=== PATIENT | female | born 1950 | race Caucasian/White ===

== ENCOUNTER → 2017-01-05 | Outpatient (CLI) | payer MEDICARE ==
--- OUTSIDE RECORDS SUMMARY | 2017-01-05 14:07 | XMS REPORT | Referral Summary ---
Author Author [facility] Organization [facility] Address Unknown Phone Unavailable Care Team Providers Care Mason Tender Restoration Labor Name Role Phone Mesha Peters PCP Encounter [facility] Date(s): 10/23/15 - 10/23/15 [facility] [address] [place], [place] [address] Discharge Diagnosis: Brachioradial pruritus Discharge Disposition: 01-Home or Self Care Attending Physician: Yannick Myrick MD Admitting Physician: Yannick Myrick MD Referring Physician: Kelly Peters MD Vital Signs No data available for this section Problem List Condition Effective Dates Status Health Status Informant Benign pituitary Active tumor(Confirmed) Left Shoulder Bone Active spur(Confirmed)1 Bent/Broken Active toes(Confirmed)2 HRT - Hormone Active implant therapy(Confirmed) Hypothyroidism(Confi Active rmed)3 OTHER Active DYSCHROMIA(Confirmed )4 Prolactinoma(Confirm Active ed)5 Right Shoulder 2006 Active Rotator cuff(Confirmed)6 3Mchfpdy2Nlm Surgery d06Ulty Tnrovzp1Qfqu Xwxjc9Pwxn [id number] Allergies, Adverse Reactions, Alerts No Known Allergies Medications Aspirin Low Dose 81 mg, Oral, Daily, 0 Refill(s) Start Date: 04/15/15 Status: OrderedCalcium 600+D tabs, Oral, TID, 0 Refill(s) Start Date: 06/24/14 Status: OrderedEstradiol Patch 0.1 mg/24 hours twice weekly transdermal film, extended release See Instructions, APPLY 1 PATCH TO SKIN TWICE A WEEK, # 8 patches, eRx: [id number], APPLY 1 PATCH TO SKIN TWICE A WEEK Start Date: 10/15/15 Status: OrderedhydrOXYzine hydrochloride 25 mg oral tablet See Instructions, 2 TABS ORAL QID, # 180 tabs, 2 Refill(s), eRx: [facility] [id number], 2 TABS ORAL QID Start Date: 01/13/15 Status: Orderedlevothyroxine 100 mcg (0.1 mg) oral tablet See Instructions, TAKE 1 TABLET BY MOUTH DAILY LAST FILL- DUE FOR PHYSICAL- please call to schedule, # 30 tabs, 0 Refill(s), Pharmacy: [facility] , TAKE 1 TABLET BY MOUTH DAILY; LAST FILL- DUE FOR PHYSICAL- please call to schedule Start Date: 06/18/15 Status: OrderedmedroxyPROGESTERone 10 mg oral tablet See Instructions, 1 TABS ORAL DAILY,X5 DAYS,INSTR:STOP 200MG PROGESTERONE WHILE TAKING., # 5 tabs, eRx: [facility] , 1 TABS ORAL DAILY,X5 DAYS, INSTR:STOP 200MG PROGESTERONE WHILE TAKING. Start Date: 04/28/15 Status: OrderedMelatonin Oral, Bedtime (once a day), 0 Refill(s) Start Date: 06/24/14 Status: Orderedprogesterone 200 mg oral capsule See Instructions, TAKE ONE CAPSULE BY MOUTH DAILY, # 30 caps, KELLY, eRx: [facility] , TAKE ONE CAPSULE BY MOUTH DAILY Start Date: 09/05/15 Status: Ordered Results No data available for this section Immunizations Vaccine Date Refusal Reason tetanus/diphth/pertuss (Tdap) adult/adol 05/30/09 influenza virus vaccine, live 09/21/10 tetanus-diphth toxoids (Td) adult/adol 02/08/01 zoster vaccine live 11/13/13 Procedures Procedure Date Related Diagnosis Body Site Hysteroscope 03/2008 D&C - Dilatation and curettage 2008 Colonoscopy1 08/2006 Surgery 2006 Surgery Toe Surgery x3 1Normal, Follow up 10 years Social History Social History Type Response Smoking Status Never smoker Assessment and Plan Extracted from: Title: Office Visit Note Author: Yannick Myrick MD Date: 10/23/15 Assessment/Plan 1.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 We discussed this frustrating and difficult to treat condition. I recommend using ice packs or cooling lotions with menthol or camp for 4 acute episodes. Some people benefit from chiropractic manipulation. She is going to try capsaicin cream as an option. Neurontin could be a future option but I would prefer to manage with topical capsaicin cream long-term if able. I gave her a handout about this condition. Ordered: Office Visit Level 2 New [id number]
--- NOTE | 2017-01-05 15:35 | Diagnostic Imaging Report ---
PROCEDURE: MRI left upper extremity without contrast. TECHNIQUE: Multiplanar, multisequence MR imaging of the left shoulder was performed without contrast. COMPARISON: None available. INDICATION: Left shoulder pain after fall. FINDINGS: Rotator cuff: No rotator cuff tear. Mild tendinopathy of the supraspinatus is present. No rotator cuff muscle atrophy. Glenoid labrum: Evaluation of the glenoid labrum is limited without intra-articular contrast. Additionally, patient motion limits evaluation of the labrum as well. Allowing for this, no displaced labral tear is seen. Long head of biceps: Long head of biceps is normal in position and intracapsular segment is intact. Bones and cartilage: No fracture or focal osseous lesion in the proximal humerus or glenoid. No high-grade chondromalacia in the glenohumeral joint. Acromioclavicular joint is normal in alignment with mild degenerative changes, including small inferior projecting osteophytes. Soft tissues: No MRI findings of adhesive capsulitis. No subacromial or subdeltoid bursitis. No glenohumeral joint effusion. IMPRESSION: 1. No rotator cuff tear. Mild tendinopathy of the supraspinatus. 2. Long head of the biceps is normal. 3. Mild osteoarthritis of the acromioclavicular joint. Dictated by: Dictated on workstation # [id number]
== END ==
LOC: RAD 14:04
PROVIDERS: ATTEND Nurse Practitioner
DX: M75.122 Complete rotator cuff tear or rupture of left shoulder, not specified as traumatic (principal)
CPT/HCPCS: 73221

== ENCOUNTER 2018-01-19 05:31 | Outpatient (CLI) | payer MEDICARE ==
[~2018-01-19] VITALS: Ht 167.6 cm; Wt 59.0 kg
[2018-01-19] MEDS ORDERED: SKELETAL STRENGTH PO (12:03)
[2018-01-19] MEDS ORDERED: MELA1TAB15 PO (12:03)
[2018-01-19] MEDS ORDERED: PRED5TAB PO (12:03)
[2018-01-19] MEDS ORDERED: UBID100C17 PO (12:03)
[2018-01-19] MEDS ORDERED: d-mannose PO (12:03)
[2018-01-19] MEDS ORDERED: PROP10DR3 OU (12:03)
[2018-01-19] MEDS ORDERED: CHOL200025 PO (12:03)
[2018-01-19] MEDS ORDERED: LEVO100T7 PO (12:03)
[2018-01-19] MEDS ORDERED: TRIM100T PO (12:03)
[2018-01-19] MEDS ORDERED: PARO10TA3 PO (12:03)
[2018-01-19] MEDS ORDERED: ASCO500T6 PO (12:03)
[2018-01-19] MEDS ORDERED: MULT-1029 PO (12:03)
[2018-01-19] MEDS ORDERED: ACYC200C PO (12:03)
[2018-01-19] MEDS ORDERED: PROG200C6 PO (12:03)
[2018-01-19] MEDS ORDERED: FEXO180T84 PO (12:03)
== END 2018-01-19 12:07 ==
LOC: PREOP 05:31
PROVIDERS: ATTEND Specialist
DX: Z01.818 Encounter for other preprocedural examination (principal); H25.89 Other age-related cataract

== ENCOUNTER 2018-01-27 07:27 | Day surgery (SDC) | payer MEDICARE ==
[~2018-01-27] VITALS: Ht 167.6 cm; Wt 59.0 kg
[~2018-01-27 07:27] MED LIST: ACYC200C PO; ASCO500T6 PO; CHOL200025 PO; FEXO180T84 PO; LEVO100T7 PO; MELA1TAB15 PO; MULT-1029 PO; PARO10TA3 PO; PRED5TAB PO; PROG200C6 PO; PROP10DR3 OU; SKELETAL STRENGTH PO; TRIM100T PO; UBID100C17 PO; d-mannose PO
--- OUTSIDE RECORDS SUMMARY | 2018-01-27 07:31 | XMS REPORT | Referral Summary ---
Author Author [facility] Organization [facility] Address Unknown Phone Unavailable Care Team Providers Care Spareribs Trimmer Name Role Phone Kelly Peters PCP Encounter [facility] Date(s): 10/23/15 - 10/23/15 [facility] [address] [place], [place] [address] Discharge Diagnosis: Brachioradial pruritus Discharge Disposition: 01-Home [...] ed)5 Right Shoulder 2006 Active Rotator cuff(Confirmed)6 1Surgery 2Toe Surgery x3 3Drug Therapy 4Cold Sores 5Drug therapy 6Surgery Allergies, Adverse Reactions, Alerts No Known Allergies Medications Aspirin Low Dose 81 mg, Oral, Daily, 0 Refill(s) Start Date: 04/15/15 Status: Ordered Calcium 600+D tabs, Oral, TID, 0 Refill(s) Start Date: 06/24/14 Status: Ordered Estradiol Patch 0.1 mg/24 hours twice weekly transdermal film, extended release See Instructions, APPLY 1 PATCH TO SKIN TWICE A WEEK, # 8 patches, eRx: [id number], APPLY 1 PATCH TO SKIN TWICE A WEEK Start Date: 10/15/15 Status: Ordered hydrOXYzine hydrochloride 25 mg oral tablet See Instructions, 2 TABS ORAL QID, # 180 tabs, 2 Refill(s), eRx: [facility] [id number], 2 TABS ORAL QID Start Date: 01/13/15 Status: Ordered levothyroxine 100 mcg (0.1 mg) oral tablet See Instructions, TAKE 1 TABLET BY MOUTH DAILY LAST FILL- DUE FOR PHYSICAL- please call to schedule, # 30 tabs, 0 Refill(s), Pharmacy: [facility] , TAKE 1 TABLET BY MOUTH DAILY; LAST FILL- DUE FOR PHYSICAL- please call to schedule Start Date: 06/18/15 Status: Ordered medroxyPROGESTERone 10 mg oral tablet See Instructions, 1 TABS ORAL DAILY,X5 DAYS,INSTR:STOP 200MG PROGESTERONE WHILE TAKING., # 5 tabs, eRx: [id number], 1 TABS ORAL DAILY,X5 DAYS, INSTR:STOP 200MG PROGESTERONE WHILE TAKING. Start Date: 04/28/15 Status: Ordered Melatonin Oral, Bedtime (once a day), 0 Refill(s) Start Date: 06/24/14 Status: Ordered progesterone 200 mg oral capsule See Instructions, TAKE ONE CAPSULE BY MOUTH DAILY, # 30 caps, KELLY, eRx: [facility] , TAKE ONE CAPSULE BY MOUTH DAILY [...] condition. Ordered: Office Visit Level 2 New [id number]
--- OUTSIDE RECORDS SUMMARY | 2018-01-27 07:32 | XMS REPORT | Referral Summary ---
Author Author [facility] Organization [facility] Address Unknown Phone Unavailable Care Team Providers Care Help Desk Associate Name Role Phone Kelly Peters PCP Encounter [facility] Date(s): 04/15/15 - 04/15/15 [facility] [address] [place] [address] Discharge Diagnosis: Post-menopausal bleeding Discharge Disposition: -Home or Self Care Attending Physician: Brie Dickinson APRN Admitting Physician: Brie Dickinson APRN Referring Physician: Kelly Peters MD Vital Signs Most recent to 1 oldest [Reference Range]: Temperature Oral 37.1 degC [35.8-37.3 degC] (04/15/15 9:28 AM) Peripheral Pulse 91 bpm Rate [60-100 bpm] (04/15/15 9:28 AM) Respiratory Rate 16 br/min [14-20 br/min] (04/15/15 9:28 AM) Blood Pressure 130/80 mmHg [90-140/60-90 mmHg] (04/15/15 9:28 AM) SpO2 98 % (04/15/15 9:28 AM) Problem List Condition Effective Dates Status Health [...] TWICE A WEEK, # 8 patches, eRx: [facility] [id number], APPLY 1 PATCH TO SKIN TWICE A WEEK Start Date: 10/15/15 Status: Ordered hydrOXYzine hydrochloride 25 mg oral tablet See Instructions, 2 TABS ORAL QID, # 180 tabs, 2 Refill(s), eRx: [facility] [id number], 2 TABS ORAL QID Start Date: 01/13/15 Status: Ordered levothyroxine 100 mcg (0.1 mg) oral tablet See Instructions, TAKE 1 TABLET BY MOUTH DAILY LAST FILL- DUE FOR PHYSICAL- please call to schedule, # 30 tabs, 0 Refill(s), Pharmacy: [facility] [id number], TAKE 1 TABLET BY MOUTH DAILY; LAST FILL- DUE FOR PHYSICAL- please call to schedule Start Date: 06/18/15 Status: Ordered medroxyPROGESTERone 10 mg oral tablet See Instructions, 1 TABS ORAL DAILY,X5 DAYS,INSTR:STOP 200MG PROGESTERONE WHILE TAKING., # 5 tabs, eRx: [facility] [id number], 1 TABS ORAL DAILY,X5 DAYS, INSTR:STOP 200MG PROGESTERONE WHILE TAKING. Start Date: 04/28/15 Status: Ordered Melatonin Oral, Bedtime (once a day), 0 Refill(s) Start Date: 06/24/14 Status: Ordered progesterone 200 mg oral capsule See Instructions, TAKE ONE CAPSULE BY MOUTH DAILY, # 30 caps, KELLY, eRx: [facility] [id number], TAKE ONE CAPSULE BY MOUTH DAILY Start Date: 09/05/15 Status: Ordered Results Microbiology Reports TEST: Wet Prep Exam STATUS: Auth (Verified) BODY SITE: SOURCE: Cervix/Vaginal COLLECTED DATE/TIME: 04/15/15 10:56 AM Wet Prep Exam No Trichomonas, yeast or clue cells observed Immunizations Vaccine Date Refusal Reason tetanus/diphth/pertuss (Tdap) [...] Extracted from: Title: Office Visit Note Author: Brie Dickinson APRN Date: 04/15/15 Assessment/Plan Post-menopausal bleeding She indeed is having vaginal bleeding. Will perform transvaginal sonogram, trial short course of Medroxyprogesterone and hold Progesterone for the duration. She is to follow immediately with saturation of one pad hourly. Have made referral to Dr. Omer for evaluation , recommendations and needed diagnostics. Ordered: Office Visit Level 4 Est [id number] Wet Prep Exam Orders: medroxyPROGESTERone, 10 mg 1 tabs, Oral, Daily, stop 200mg Progesterone while taking., # 5 tabs, 0 Refill(s), Pharmacy: [facility] [id number], 1 tabs Oral Daily,x5 days,Instr:stop 200mg Progesterone while taking. US Transvaginal/Pelvic Complete
[2018-01-27] MEDS ORDERED: VANCOMYCIN/BSS (COMPOUNDED) 10 MG/ML SYR OP ONE (07:45)
[2018-01-27] MEDS ORDERED: TIMOLOL MALEATE 0.5% 5 ML (TIMOPTIC) BTL OU PRN (07:45)
[2018-01-27] MEDS ORDERED: POVIDONE (BETADINE) OPHTH SOLN 5% 30 ML OP ONE (07:45)
[2018-01-27] MEDS ORDERED: EPINEPHrine INJECTION 1 MG/ML AMP INJ ONE (07:45)
[2018-01-27 07:50] VITALS: BP 123/93
[2018-01-27] MEDS: TETRACAINE 0.5% OPHTH SOLN 4 ML BTL (SINGLE DOSE ONLY) OU PRN ×4 (07:55→08:11)
[2018-01-27] MEDS ORDERED: LIDOCAINE PF 1% 2 ML VIAL (OR ONLY) IR PRN (08:00)
[2018-01-27] MEDS: CYCLOPENTOLATE 1% (CYCLOGYL) 2 ML DROPS OP SCH ×3 (08:01→08:11)
[2018-01-27] MEDS: PHENYLEPHRINE 10% OPHTH (NEO-SYN) 5 ML BTL OU SCH ×3 (08:02→08:11)
--- NOTE | 2018-01-27 08:36 | Ophthalmologist Pre-Op Note ---
Pre-Operative Progress Note H&P Reviewed The H&P was reviewed, patient examined and no changes noted. Date H&P Reviewed: Jan 27, 2018 Time H&P Reviewed: 08:36 Pre-Op Dx Cataract, Left Eye BAILEY OATES MD Jan 27, 2018 08:36
[2018-01-27] MEDS ORDERED: MIDAZOLAM 2 MG/2 ML (VERSED) VIAL ONE (08:44)
--- NOTE | 2018-01-27 09:04 | Ophthalmology Operative Report ---
Cataract removal/placement IOL PREOPERATIVE DIAGNOSIS: Cataract Left Eye POSTOPERATIVE DIAGNOSIS: Cataract Left Eye PROCEDURE: Cataract removal and placement of posterior chamber implant, left eye SURGEON: Brett Oates ANESTHESIA: Topical with sedation COMPLICATIONS: None ESTIMATED BLOOD LOSS: Minimal DESCRIPTION OF PROCEDURE: After proper informed consent was obtained, the patient, a 67 female, was taken to the Operating Room and the left eye was anesthetized with tetracaine. They left eye was then prepped and draped in the usual manner. A wire lid speculum was placed. A paracentesis was made at the left hand position. Preservative free lidocaine was injected into the anterior chamber followed by viscoelastic. A clear corneal incision was made in the temporal position. A capsulorrhexis was preformed and the central nuclear and cortical material were removed. The posterior capsule was polished and David 20.5 SN6CWS IOL was placed into the capsular bag. The residual viscoelastic was aspirated and balanced saline solution was injected into the anterior chamber. 1.0 ml of Vancomycin (10mg/ 1.0ml) was injected into the anterior chamber. The would was checked and found to be water tight. The patient tolerated the procedure well without complications. BRETT OATES MD Jan 27, 2018 09:04
[2018-01-27 09:10] VITALS: BP 135/85
== END 2018-01-27 13:39 | disposition home or self-care (01) ==
LOC: SDC 07:27
PROVIDERS: ATTEND Specialist
DX: H26.9 Unspecified cataract (principal); E03.9 Hypothyroidism, unspecified; F32.9 Major depressive disorder, single episode, unspecified; Z79.899 Other long term (current) drug therapy

== ENCOUNTER → 2018-09-07 | Outpatient (CLI) | payer MEDICARE ==
--- NOTE | 2018-09-07 09:01 | Diagnostic Imaging Report ---
PROCEDURE: US abdomen complete. TECHNIQUE: Multiple real-time grayscale images were obtained over the abdomen in various projections. INDICATION: Abdominal pain and nausea. FINDINGS: The liver is normal in size. There is a simple-appearing 15 mm cyst right lobe of liver. No other liver lesions are identified. The portal vein is patent and shows normal direction of flow. Gallbladder is without stones or sludge. No wall thickening or biliary duct dilatation is seen. The pancreas is unremarkable. Spleen is normal in size at 10.6 cm. Aorta and IVC are unremarkable. Right and left kidneys are unremarkable. There is no ascites. IMPRESSION: 1. Hepatic cysts. 2. No evidence of cholelithiasis or acute cholecystitis. Dictated by: Dictated on workstation # [id number]
== END ==
LOC: RAD 07:52
PROVIDERS: ATTEND Internal Medicine
DX: K76.89 Other specified diseases of liver (principal); R10.9 Unspecified abdominal pain
CPT/HCPCS: 76700

== ENCOUNTER → 2019-02-06 | Outpatient (CLI) | payer MEDICARE ==
--- NOTE | 2019-02-06 09:26 | Diagnostic Imaging Report ---
INDICATION: Postmenopausal screening for osteoporosis. COMPARISON: None FINDINGS: AP Spine L1-L4: [BMD (g/cm2): 1.162] [T-Score: -0.3] [Z-Score: 1.4] [BMD Previous: N/A] [BMD % Change: N/A] LT Hip Neck: [BMD (g/cm2): 0.67] [T-Score: -2.5] [Z-Score: -0.9] LT Hip Total: [BMD (g/cm2):0.783] [T-Score:-1.8] [Z-Score: -0.4] [BMD Previous: N/A] [BMD % Change: N/A] RT Hip Neck: [BMD (g/cm2):0.668] [T-Score:-2.7] [Z-Score:-1.1] RT Hip Total: [BMD (g/cm2):0.793] [T-score:-1.7] [Z-Score:-0.3] [BMD Previous:N/A] [BMD % Change:N/A] *Indicates significant change from prior examination based on 95% confidence level. World Health Organization criteria for BMD interpretation classify patients as Normal (T-score at or above -1.0), Osteopenic (T-score between -1.0 and -2.5) or Osteoporotic (T-score at or below -2.5). LIMITATIONS AND MODIFICATION: None. FRACTURE RISK (FRAX SCORE): The ten year probability of (%): Major Osteoporotic Fracture: [14.6] Hip Fracture: [3.9] IMPRESSION: 1. Osteopenia (Low bone mass). 2. Baseline examination. 3. See below National Osteoporosis Foundation guidelines on when to potentially initiate pharmacologic therapy. Based on the National Osteoporosis Foundation Guidelines, pharmacologic treatment should be initiated in any of the following, unless clinical conditions suggest otherwise: * Any patient with prior fragility fracture of the hip or vertebrae. A spine fracture indicates 5X risk for subsequent spine fracture and 2X risk for subsequent hip fracture. * Osteoporosis (T-score <-2.5). * Postmenopausal women and men age 50 and older with low bone mass/osteopenia (T-score between -1.0 and -2.5) by DXA and 10-year major osteoporotic fracture greater than 20% or a 10-year probability of hip fracture greater than 3%. These fracture risks are supplied above in the FRAX score, if applicable. * Clinician judgement and/or patient preferences may indicate treatment for people with 10-year fracture probabilities above or below these levels. Dictated by: Dictated on workstation # [id number]
== END ==
LOC: RAD 08:19
PROVIDERS: ATTEND Internal Medicine
DX: Z13.820 Encounter for screening for osteoporosis (principal); M85.89 Other specified disorders of bone density and structure, multiple sites; Z78.0 Asymptomatic menopausal state
CPT/HCPCS: 77080